=== PATIENT | female | born 1975 | race Two or more races ===

== ENCOUNTER 2021-11-09 18:14 | Emergency (ER) | payer MEDICAID, OTHER ==
[~2021-11-09] VITALS: Ht 157.5 cm; Wt 97.5 kg
[2021-11-09 18:23] VITALS: BP 152/95
[2021-11-09] MEDS ORDERED: ALBUAER3 IN (19:19)
[2021-11-09] MEDS ORDERED: GUAI600T23 PO (19:19)
[2021-11-09] MEDS ORDERED: IBUP800T27 PO (19:19)
== END 2021-11-09 20:10 | disposition home or self-care (01) ==
LOC: ER 18:14
DX: U07.1 COVID-19 (principal); R51.9 Headache, unspecified; R19.7 Diarrhea, unspecified
CPT/HCPCS: 71045

== ENCOUNTER 2024-05-11 09:19 | Emergency (ER) | payer MEDICAID ==
[~2024-05-11] VITALS: Ht 154.9 cm; Wt 97.2 kg
[~2024-05-11 09:19] MED LIST: ALBUAER3 IN; CEPH250C PO; CYCL7.5T66 PO; GUAI600T78 PO; IBUP-1456 PO; LIDO5DIS21 TOP; NAPR-746 PO
[2024-05-11 11:24] LABS: Basophils # (auto) 0 10 ^3/uL (0-0.2); Basophils % (auto) 0.4 % (0.0-2.0); Eosinophils # (auto) 0.1 10 ^3/uL (0-0.8); Eosinophils % (auto) 1.2 % (0.0-7.0); Hematocrit 36.7 % (36.0-46.0); Hemoglobin 12.5 g/dL (12.2-16.2); Lymphocytes # (auto) 2.6 10 ^3/uL (0.4-5.4); Lymphocytes % (auto) 42.6 % (10.0-50.0); Mean Corpuscular Hemoglobin 30.6 pg (28.0-32.0); Mean Corpuscular Hgb Conc. 34.1 g/dL (32.0-36.0); Mean Corpuscular Volume 89.7 fL (80.0-100.0); Monocytes # (auto) 0.4 10 ^3/uL (0-1.3); Monocytes % (auto) 7.3 % (0.0-12.0); Neutrophils % (auto) 48.5 % (37.0-80.0); Platelet Count (auto) 257 10^3/uL (140-450); Red Blood Cells 4.08 10^6/uL (4.0-5.20); Red Cell Distribution Width 13.6 % (11.8-14.3); White Blood Cell 6.1 10^3/uL (4.4-10.8)
[2024-05-11 11:46] LABS: Alanine Aminotransferase 17 U/L (7-40); Albumin 4.1 g/dL (3.2-4.8); Anion Gap 6 (5-15); Aspartate Aminotransferase 11 U/L (13-40); BUN/Creatinine Ratio 25.4 (10.0-20.0); Bilirubin, Total 0.2 mg/dL (0.2-1.0); Blood Urea Nitrogen 18 mg/dL (9-23); CRP High Sensitivity 0.51 mg/dL (<1.0); Calcium 9.4 mg/dL (8.7-10.4); Carbon Dioxide 27 mmol/L (20-30); Chloride 107 mmol/L (98-107); Glucose 98 mg/dL (74-106); Sodium 140 mmol/L (136-145); Total Protein 7.4 g/dL (5.7-8.2)
[2024-05-11 11:49] LABS: Alkaline Phosphatase 96 U/L (46-116)
[2024-05-11 12:32] LABS: Erythrocyte Sedimentation Rate 25 mm/hr (0-20)
[2024-05-11] MEDS: IOHEXOL 300 MG/ML 100ML BOTTLE IJ ONE (13:26)
[2024-05-11 14:45] VITALS: PULSE 73; RESP 16; O2SAT 97
[2024-05-11] MEDS: NITROGLYCERIN 0.4 MG SL TAB SL ONE (18:49)
[2024-05-11 19:15] VITALS: BP 126/77; PULSE 74; RESP 20; TEMP 97.5; O2SAT 98
== END 2024-05-11 19:18 | disposition home or self-care (01) ==
LOC: ER 09:19
DX: S80.12XA Contusion of left lower leg, initial encounter (principal); R10.2 Pelvic and perineal pain; F31.9 Bipolar disorder, unspecified; F20.9 Schizophrenia, unspecified; E78.5 Hyperlipidemia, unspecified; Z86.69 Personal history of other diseases of the nervous system and sense organs; Z79.899 Other long term (current) drug therapy; Z95.811 Presence of heart assist device; Z88.6 Allergy status to analgesic agent; Z88.8 Allergy status to other drugs, medicaments and biological substances; X58.XXXA Exposure to other specified factors, initial encounter; Y93.89 Activity, other specified; Y92.89 Other specified places as the place of occurrence of the external cause; Y99.8 Other external cause status
CPT/HCPCS: 36415; 73701; 80053; 83605; 83880; 84702; 85025; 85379; 85652; 86141; 93926; 93971; 99285; Q9967

== ENCOUNTER 2025-02-10 12:45 | Emergency (ER) | payer MEDICAID ==
[~2025-02-10] VITALS: Ht 157.5 cm; Wt 89.9 kg
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
[2025-02-10 13:45] VITALS: BP 107/66; PULSE 74; RESP 17; TEMP 97.7; O2SAT 96
== END 2025-02-10 13:50 | disposition home or self-care (01) ==
LOC: ER 12:45
DX: F12.90 Cannabis use, unspecified, uncomplicated (principal); F07.81 Postconcussional syndrome; Z87.891 Personal history of nicotine dependence; Z79.899 Other long term (current) drug therapy; Z79.1 Long term (current) use of non-steroidal anti-inflammatories (NSAID); Z88.6 Allergy status to analgesic agent; Z88.8 Allergy status to other drugs, medicaments and biological substances; Z91.048 Other nonmedicinal substance allergy status
CPT/HCPCS: 70450

== ENCOUNTER 2025-06-15 08:25 | Day surgery (SDC) | payer MEDICAID ==
[2025-06-10 11:33] LABS: INR 1.04 (0.9-1.15); Partial Thromboplastin Time 27.7 SEC (24.5-34.5); Prothrombin Time 11.0 sec (9.3-11.8)
[2025-06-10 11:36] LABS: Hematocrit 38.5 % (36.0-46.0); Hemoglobin 12.9 g/dL (12.2-16.2); Mean Corpuscular Hemoglobin 29.1 pg (28.0-32.0); Mean Corpuscular Volume 87.1 fL (80.0-100.0); Nucleated Red Blood Cells % 0.0 %
[2025-06-10 11:59] LABS: Alanine Aminotransferase 24 U/L (7-40); Albumin 4.3 g/dL (3.2-4.8); Anion Gap 10 (5-15); BUN/Creatinine Ratio 19.0 (10.0-20.0); Blood Urea Nitrogen 16 mg/dL (9-23); Calcium 9.3 mg/dL (8.7-10.4); Carbon Dioxide 25 mmol/L (20-31); Chloride 106 mmol/L (98-107); Potassium 3.8 mmol/L (3.5-5.1); Sodium 141 mmol/L (136-145); Total Protein 7.9 g/dL (5.7-8.2)
[2025-06-10 12:00] LABS: Bilirubin, Total 0.4 mg/dL (0.2-1.0)
[2025-06-10 12:09] LABS: Alkaline Phosphatase 125 U/L (46-116)
[2025-06-10 13:18] LABS: Glucose 98 mg/dL (74-106)
[~2025-06-15] VITALS: Ht 157.5 cm; Wt 92.1 kg
[2025-06-15] MEDS ORDERED: PROPOFOL 10 MG/ML 100ML BOTTLE IV ONE (08:26)
[2025-06-15] MEDS ORDERED: fentaNYL CITRATE 100 MCG/2 ML VL ONE (09:52)
[2025-06-15] MEDS ORDERED: HYDROmorphone HCL 2 MG/ML VL/or syr ONE (09:52)
[2025-06-15] MEDS: ceFAZolin 2 GM/D5W50ml 50 ML IV ONE (09:56)
[2025-06-15] MEDS: LIDOCAINE 1% HCL (LOCAL ANESTH.) INJ 20ML MDV ONE (10:12)
[2025-06-15] MEDS ORDERED: ONDANSETRON HCL 4 MG/2 ML VIAL ONE (10:14)
[2025-06-15] MEDS ORDERED: TRIAMCINOLONE 40MG/ML 1ML VIAL ONE (10:16)
--- NOTE | 2025-06-15 10:32 | DVHOP2 ---
Operative Report - 2 Report Details Date: 06/15/25 Preop Diagnosis: 1. Bilateral foot neuroma 2. Bilateral foot pain 3. Right foot ganglion cyst Postop Diagnosis: Same as preop Surgeon: Sue Lyman MD Anesthesiologist: See anesthesia Anesthesia: General Consent: The patient was informed of the risks and benefits of the procedure. These include but are not limited to complications of anesthesia, postoperative infection, incomplete relief of symptoms, recurrence of symptoms, damage to blood vessels, nerves and tendons, deep venous thrombosis, pulmonary embolism and possible need for repeat surgery in the future. Complications: None Estimated Blood Loss: Minimal Fluids: See anesthesia Findings: Consistent with diagnosis Indications for Surgery: Bilateral foot pain Name of Procedure Performed 1. Right foot neuroma excision (56665) 2. Right foot nerve decompression (54818) 3. Left foot neuroma excision (66030) 4. Left foot nerve decompression (27415) 5. Left foot ganglion cyst injection (78269) Procedure Details Procedure Details: PRE-PROCEDURE INFORMATION: In the pre-op holding area, the extremity to be operated on was clearly marked and the patient verified correct laterality of the marking. The patient was transferred to the OR table and placed in a supine position. A timeout was performed in which identification of the correct patient, procedure, location, and materials was done. The bilateral foot and leg were prepped and draped in normal sterile fashion. The foot and leg were exsanguinated and ankle Esmarch DESCRIPTION OF PROCEDURE: Attention was directed to the right foot where linear incision was made at the dorsal 1st interspace. Care was taken throughout the dissection to avoid damage to the neurovascular and tendinous structures. Hemostasis was achieved via electrocautery. The incision was deepened through blunt dissection to the level of the deep transverse intermetatarsal ligament. Once the ligament was visualized it was transected using dissecting scissors, effectively decompressing the underlying plantar nerve. This allowed visualization of the plantar nerve, which revealed that there was a neuroma of the plantar nerve with hourglass and severe fibrosis of the perineum noted. The nerve was dissected proximally and was transected. The neuroma was removed and sent to pathology. Attention was directed to the left foot where linear incision was made at the dorsal 1st interspace. Care was taken throughout the dissection to avoid damage to the neurovascular and tendinous structures. Hemostasis was achieved via electrocautery. The incision was deepened through blunt dissection to the level of the deep transverse intermetatarsal ligament. Once the ligament was visualized it was transected using dissecting scissors, effectively decompressing the underlying plantar nerve. This allowed visualization of the plantar nerve, which revealed that there was a neuroma of the plantar nerve with hourglass and severe fibrosis of the perineum noted. The nerve was dissected proximally and was transected. The neuroma was removed and sent to pathology. Attention was directed to the right foot, where using a 25 gauge needle, a proximally 1 cc of Kenalog was injected to the ganglion cyst. All surgical wounds were irrigated copiously with saline and closed in layers with the aforementioned suture material. A dry sterile dressing was placed on the surgical extremity. The patient was placed in a postop shoe POSTOPERATIVE INFORMATION: The patient tolerated the above noted procedure and anesthesia well and was transferred to the PACU with vital signs stable, and vascular status intact with capillary refill intact to all digits. Postoperative instructions reviewed in detail with the patient with written instructions provided. Patient will return to clinic in approximately 10-14 days for first p ostoperative visit. Patient has the number of the clinic and was instructed to call prior to that time should any problems, questions, or concerns arise. Specimen: Alex's neuroma Condition Good Disposition Home Visit Coding Podiatry Date of Service if different f: Jun 15, 2025 Billing Provider: SUE LYMAN DPM Podiatry Common Visit Codes: PROCEDURE ONLY SUE LYMAN DPM Jun 15, 2025 10:32
[2025-06-15 10:44] VITALS: PULSE 92; RESP 10; TEMP 97; O2SAT 95
[2025-06-15 11:00] VITALS: PULSE 78; RESP 16; O2SAT 98
[2025-06-15 11:10] VITALS: BP 124/76; PULSE 90; RESP 18; O2SAT 96
== END 2025-06-15 11:30 | disposition home or self-care (01) ==
LOC: SUR 08:25
PROVIDERS: ATTEND Podiatrist
DX: G57.63 Lesion of plantar nerve, bilateral lower limbs (principal); M67.471 Ganglion, right ankle and foot; G40.909 Epilepsy, unspecified, not intractable, without status epilepticus; F20.9 Schizophrenia, unspecified; Z79.899 Other long term (current) drug therapy; Z90.710 Acquired absence of both cervix and uterus; Z90.49 Acquired absence of other specified parts of digestive tract; Z95.5 Presence of coronary angioplasty implant and graft; Z98.1 Arthrodesis status; Z98.890 Other specified postprocedural states; Z88.8 Allergy status to other drugs, medicaments and biological substances
CPT/HCPCS: 20612; 28080; 36415; 80053; 85025; 85610; 85730; 88305; J0690; J1171; J2003; J2405; J2704; J3010; J3301

== ENCOUNTER 2025-07-08 10:25 | Day surgery (SDC) | payer MEDICAID ==
[2025-07-04 15:33] LABS: Hematocrit 39.5 % (36.0-46.0); Hemoglobin 13.2 g/dL (12.2-16.2); Mean Corpuscular Hemoglobin 29.4 pg (28.0-32.0); Mean Corpuscular Volume 87.9 fL (80.0-100.0); Nucleated Red Blood Cells % 0.0 %
[2025-07-04 15:46] LABS: INR 0.97 (0.9-1.15); Partial Thromboplastin Time 26.5 SEC (24.5-34.5); Prothrombin Time 10.3 sec (9.3-11.8)
[2025-07-04 15:48] LABS: Alanine Aminotransferase 20 U/L (7-40); Albumin 4.5 g/dL (3.2-4.8); Alkaline Phosphatase 123 U/L (46-116); Anion Gap 9 (5-15); BUN/Creatinine Ratio 23.5 (10.0-20.0); Blood Urea Nitrogen 20 mg/dL (9-23); Calcium 9.2 mg/dL (8.7-10.4); Carbon Dioxide 30 mmol/L (20-31); Chloride 102 mmol/L (98-107); Glucose 94 mg/dL (74-106); Potassium 4.2 mmol/L (3.5-5.1); Sodium 141 mmol/L (136-145); Total Protein 8.1 g/dL (5.7-8.2)
[2025-07-04 15:49] LABS: Bilirubin, Total 0.2 mg/dL (0.2-1.0)
[~2025-07-08] VITALS: Ht 157.5 cm; Wt 94.3 kg
[~2025-07-08 10:25] MED LIST changes: +ALPR0.25 GT; +ARIP1INJ IM; +ASPI1TAB20 PO; +ATOR10TA PO; +CARB100S GT; -CEPH250C PO; -CYCL7.5T66 PO; +DIVA-139 PO; +GABA-1308 PO; -GUAI600T78 PO; -IBUP-1456 PO; -LIDO5DIS21 TOP; -NAPR-746 PO
[2025-07-08] MEDS ORDERED: MORPHINE SULFATE 4 MG/ML SYR/VIAL IV PRN (11:15)
[2025-07-08] MEDS ORDERED: METOCLOPRAMIDE HCL 5MG/ml INJ 2ml VIAL IV PRN (11:15)
[2025-07-08] MEDS ORDERED: MORPHINE SULFATE INJ 2 MG/ml SYRG IV PRN (11:15)
[2025-07-08] MEDS ORDERED: HYDROmorphone HCL 2 MG/ML VL/or syr IV PRN ×2 (11:15)
[2025-07-08] MEDS ORDERED: KETAMINE 50mg/ML 1ml syringe ONE (11:47)
[2025-07-08] MEDS ORDERED: MIDAZOLAM HCL 2MG/2ML 2ml VIAL (1mg/ml) ONE (11:47)
[2025-07-08] MEDS ORDERED: fentaNYL CITRATE 100 MCG/2 ML VL ONE (11:47)
[2025-07-08] MEDS ORDERED: PROPOFOL 10 MG/ML 20 ML IV ONE (11:48)
[2025-07-08] MEDS ORDERED: LIDOCAINE 1% INJ PF 5ML AMP ONE (11:48)
[2025-07-08] MEDS ORDERED: ONDANSETRON HCL 4 MG/2 ML VIAL ONE (11:48)
[2025-07-08] MEDS ORDERED: SODIUM CHLORIDE LOCK 10 ML ONE (11:48)
[2025-07-08] MEDS: LIDOCAINE VISCOUS 2% 15ML UD ONE (11:55)
[2025-07-08 12:14] VITALS: PULSE 72; RESP 12; TEMP 98.8; O2SAT 100
[2025-07-08 12:20] VITALS: PULSE 73; RESP 18; O2SAT 100
[2025-07-08 12:34] VITALS: BP 137/72; PULSE 60; RESP 18; O2SAT 99
--- NOTE | 2025-07-08 13:11 | DVHOP2 ---
Operative Report DATE OF OPERATION: 07/08/25 PROCEDURE: Upper Endoscopy with biopsy. PREOPERATIVE INDICATION: The patient is a 50 -year-old female undergoing endoscopy for epigastric pain POSTOPERATIVE DIAGNOSES: 1. Mild to moderate pre-pyloric antral gastritis with a pre-pyloric antral gastric tiny ulcer and some erosions 2. 1-2 cm sliding-type hiatal hernia was irregular squamocolumnar junction PROCEDURE PERFORMED BY: Klaus Ingram GI NURSE: Jennifer SCOPE: Olympus videoendoscope. ASA CLASS: 2 PREOPERATIVE MEDICATIONS: Dr. Gianni Garza PROCEDURE IN DETAIL: After obtaining an informed consent, the patient was placed on left lateral decubitus position. The patient was then sedated with the above medications. A bite block was placed between his teeth. The endoscope was then passed through the oropharynx, into the esophagus, and through the stomach and pylorus up to the second and third part of the duodenum. The endoscope was then withdrawn. The 2nd and 3rd part of the duodenum and the duodenal bulb were normal. Duoden al biopsies were obtained The pre-pyloric area antrum showed [id number] gastritis and there was a tiny superficial pre-pyloric antral gastric ulcer and surrounding erosions Gastric biopsies were obtained. On retroflexion the fundus cardia and angularis were normal. The endoscope was then withdrawn into the distal esophagus Patient had a 1-2 cm sliding-type hiatal hernia with slightly irregular squamocolumnar junction no significant erosive esophagitis GE junction biopsies were obtained. The remaining distal and proximal esophagus and oropharynx were unremarkable The patient tolerated the procedure well without difficulty. COMPLICATIONS : None SPECIMENS: Duodenal biopsies Gastric biopsies GE junction biopsies DISPOSITION: Stable D/C to home PLAN: 1. Await for biopsy result 2. Will place pt on Protonix 40 mg p.o. daily 3. Avoid aspirin and NSAIDs 4. Resume GI soft diet and advance as tolerated 5. Outpatient follow up with me in 2-4 weeks to review results and discuss further management KLAUS INGRAM MD Jul 08, 2025 13:11
== END 2025-07-08 12:45 | disposition home or self-care (01) ==
LOC: GI 10:25
PROVIDERS: ATTEND Internal Medicine Gastroenterology
DX: K25.9 Gastric ulcer, unspecified as acute or chronic, without hemorrhage or perforation (principal); K29.70 Gastritis, unspecified, without bleeding; K44.9 Diaphragmatic hernia without obstruction or gangrene
CPT/HCPCS: 36415; 43239; 80053; 85025; 85610; 85730; 88305; 88307; 88313; 88342; J2250; J2405; J2704; J3010; J7030